=== PATIENT | female | born 1995 | race Caucasian/White ===

== ENCOUNTER 2021-05-02 14:57 | Inpatient (IN) | payer OTHER ==
[~2021-05-02] VITALS: Ht 170.2 cm; Wt 90.9 kg
[2021-05-02] MEDS ORDERED: FENTANYL PF 100 MCG/2ML IVPush PRN ×2 (15:30→16:00)
[2021-05-02] MEDS ORDERED: LACTATED RINGERS 1,000 ML IV SCH ×2 (15:30→17:00)
[2021-05-02] MEDS ORDERED: TERBUTALINE 1 MG/ML, 1ML IVPush PRN (15:30)
[2021-05-02] MEDS: LACTATED RINGERS 1,000 ML IVBOLUS PRN ×2 (15:30→16:10)
[2021-05-02] MEDS ORDERED: CLINDAMYCIN PMX 900MG/50ML 50 ML IVPB SCH (15:30)
[2021-05-02] MEDS ORDERED: PLEASE ENTER HEIGHT AND WEIGHT MC SCH (15:30)
[2021-05-02] MEDS ORDERED: OXYTOCIN 30U/ 0.9% NaCL 500ML 500 ML IV ONE (15:30)
[2021-05-02] MEDS ORDERED: FENTANYL PF 100 MCG/2ML IV PRN (15:30)
[2021-05-02] MEDS ORDERED: TERBUTALINE 1 MG/ML, 1ML SQ PRN (15:30)
[2021-05-02 15:40] LABS: BASOPHILS % (AUTO) 1 % (0-1); EOSINOPHILS % (AUTO) 0 % (1-7); LYMPHOCYTES % (AUTO) 10 % (22-44); MEAN CORPUSCULAR HGB CONC 33.9 g/dL (32.4-35.8); MEAN PLATELET VOLUME 10.3 fL (7.4-10.4); MONOCYTES % (AUTO) 5 % (2-9); NEUTROPHILS % (AUTO) 84 % (42-75); PLATELET COUNT 198 x10^3/uL (130-400); RED BLOOD COUNT 4.32 x10^6/uL (3.82-5.3)
[2021-05-02] MEDS ORDERED: CLINDAMYCIN PMX 900MG/50ML 50 ML ONE (15:44)
[2021-05-02 15:52] LABS: AMPHETAMINE SCREEN, URINE Negative (Negative); BARBITURATE SCREEN, URINE Negative (Negative); CANNABINOID SCREEN, URINE Negative (Negative); OPIATE SCREEN, URINE Negative (Negative)
[2021-05-02 15:53] LABS: BENZODIAZEPINE SCREEN, URINE Negative (Negative); COCAINE SCREEN, URINE Negative (Negative); METHADONE SCREEN, URINE Negative (Negative)
[2021-05-02] MEDS ORDERED: LIDOCAINE 1%, 20ML ONE (16:08)
[2021-05-02] MEDS ORDERED: MISOPROSTOL 200 MCG TABLET ONE (16:08)
[2021-05-02] MEDS ORDERED: BUPIVACAINE 0.25% ONE (16:15)
[2021-05-02] MEDS ORDERED: FENTANYL/BUPIV./NS/PF 250 ML EPIDCONT ONE (16:15)
[2021-05-02] MEDS ORDERED: FENTANYL/BUPIV./NS/PF 250 ML EPIDCONT SCH (17:00)
[2021-05-02] MEDS ORDERED: EPHEDRINE 50 MG/ML, 1ML IVPush PRN (17:00)
[2021-05-02] MEDS ORDERED: NEWBORN KIT ONE (17:43)
[2021-05-02 19:56] LABS: ALANINE AMINOTRANSFERASE 16 U/L (12-78); ALBUMIN 2.9 g/dL (3.4-5.0); ANION GAP 8 mmol/L (5-15); CALCIUM 8.8 mg/dL (8.5-10.1); CHLORIDE 109 mmol/L (98-107); CREATININE 0.65 mg/dL (0.55-1.02)
[2021-05-02 20:00] LABS: ALKALINE PHOSPHATASE 151 U/L (45-117); BILIRUBIN,TOTAL 0.3 mg/dL (0.2-1.0); TOTAL PROTEIN 7.2 g/dL (6.4-8.2)
[2021-05-02] MEDS ORDERED: CARBOPROST TROMETHAMINE 250 MCG/ML, 1ML IM PRN (20:00)
[2021-05-02] MEDS: OXYTOCIN 30U/ 0.9% NaCL 500ML 500 ML IV SCH (20:00)
[2021-05-02] MEDS ORDERED: SIMETHICONE 80 MG CHEW TAB PO PRN (20:00)
[2021-05-02] MEDS ORDERED: MISOPROSTOL 200 MCG TABLET PR PRN (20:00)
[2021-05-02] MEDS ORDERED: HYDROcodone/APAP 5/325 TABLET PO PRN ×2 (20:00)
[2021-05-02] MEDS ORDERED: ONDANSETRON 2MG/ML, 2ML IV PRN (20:00)
[2021-05-02 20:03] LABS: BILIRUBIN, DIRECT < 0.1 mg/dL (0.1-0.2)
[2021-05-02 21:10] VITALS: BP 122/73
[2021-05-02] MEDS: IBUPROFEN 600 MG TABLET PO PRN (21:31)
[2021-05-02 23:55] VITALS: BP 119/69
[2021-05-03 05:15] VITALS: BP 132/85
[2021-05-03 05:56] LABS: BASOPHILS % (AUTO) 0 % (0-1); EOSINOPHILS % (AUTO) 0 % (1-7); LYMPHOCYTES % (AUTO) 14 % (22-44); MEAN CORPUSCULAR HEMOGLOBIN 31.2 pg (27.0-34.8); MEAN PLATELET VOLUME 10.5 fL (7.4-10.4); MONOCYTES % (AUTO) 6 % (2-9); NEUTROPHILS % (AUTO) 79 % (42-75); PLATELET COUNT 157 x10^3/uL (130-400); RED BLOOD COUNT 3.86 x10^6/uL (3.82-5.3); RED CELL DISTRIBUTION WIDTH 13.1 % (9.6-15.2)
[2021-05-03] MEDS: OXYTOCIN 30U/ 0.9% NaCL 500ML 500 ML IV SCH ×2 (06:00→16:00)
[2021-05-03 08:00] VITALS: BP 152/82
[2021-05-03] MEDS: DOCUSATE 100 MG CAPSULE PO PRN ×2 (09:08→21:02)
[2021-05-03] MEDS: IBUPROFEN 600 MG TABLET PO PRN ×2 (09:08→21:02)
[2021-05-03] MEDS: PRENATAL VIT/IRON/FA 1 EACH TABLET PO SCH (09:08)
[2021-05-03 11:42] VITALS: BP 119/74
[2021-05-03 16:00] VITALS: BP 145/78
[2021-05-03 20:00] VITALS: BP 119/80
[2021-05-04 00:12] VITALS: BP 113/72
[2021-05-04] MEDS: OXYTOCIN 30U/ 0.9% NaCL 500ML 500 ML IV SCH (02:00)
[2021-05-04 07:15] VITALS: BP 108/71
[2021-05-04] MEDS: IBUPROFEN 600 MG TABLET PO PRN ×2 (07:24→16:11)
[2021-05-04] MEDS: DOCUSATE 100 MG CAPSULE PO PRN (07:24)
[2021-05-04] MEDS: PRENATAL VIT/IRON/FA 1 EACH TABLET PO SCH (07:24)
[2021-05-04] MEDS ORDERED: DIPH,PERTUSS(ACELL),TET VAC/PF NC IM-VACC ONE ×2 (09:49→10:00)
[2021-05-04 11:47] VITALS: BP 125/73
== END 2021-05-04 19:00 | disposition home or self-care (01) | DRG 807 ==
LOC: LDIP 14:57 → 2NW 21:00
PROVIDERS: ADMIT Obstetrics & Gynecology; ATTEND Obstetrics & Gynecology
PROC: 10E0XZZ Delivery of Products of Conception, External Approach (ICD-10-PCS; principal; 2021-05-02)
PROC: 10907ZC Drainage of Amniotic Fluid, Therapeutic from Products of Conception, Via Natural or Artificial Opening (ICD-10-PCS; 2021-05-02)
PROC: 3E0R3BZ Introduction of Anesthetic Agent into Spinal Canal, Percutaneous Approach (ICD-10-PCS; 2021-05-02)
PROC: 00HU33Z Insertion of Infusion Device into Spinal Canal, Percutaneous Approach (ICD-10-PCS; 2021-05-02)
DX: O69.81X0 Labor and delivery complicated by cord around neck, without compression, not applicable or unspecified (principal); Z37.0 Single live birth; Z3A.40 40 weeks gestation of pregnancy
CPT/HCPCS: 36415; 87806; J3490; 80053; 80307; 82248; 84550; 85025; 86592; 86762; 86803; 86850; 86900; 87340; 90715; G0378; J3010; G0475; J7120